=== PATIENT | female | born 1980 | race Caucasian/White ===

== ENCOUNTER 2022-11-12 08:27 | Outpatient (AMB) | payer OTHER, SELFPAY ==
--- NOTE | 2022-11-12 08:35 | AM.OFFWIN_ITS ---
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 no blurred vision unless the eye is tearing. Patient Tobacco Use Status: Never used Tobacco Allergies No Known Allergies Allergy (Verified 11/12/22 08:37) Do you need a note to return to daycare/school/sports/work: No HPI HPI Comments History of Present Illness Details The patient presents to urgent care of right eye pain and tearing. She states that it has been red swelling and tearing for the past 2 days. There is some redness to the as well. She is a contact lens wearer but stopped wearing contacts yesterday. No visual changes. The eye was not crusted shut this morning. [facility] Social History Patient Tobacco Use Status: Never used Tobacco Review of Systems Const Denies headache(s) Eyes Denies change in vision, Denies dry eyes, Denies floaters, Denies irritation, Reports itchy eyes and Denies eye pain ENT Reports no additional complaints and Denies headache(s) Card Reports no additional complaints Musc Denies numbness Skin/Breast Denies skin pain, Denies skin swelling and Denies unusual bruising Neuro Denies headache(s), Denies focal weakness and Denies numbness Aller/Immun Reports itchy eyes Physical Exam Vital Signs: Last Vital Signs Pulse 86 11/12/22 08:36 BP 110/74 11/12/22 08:36 Pulse Ox 97 11/12/22 08:36 Oxygen Delivery Method Room Air 11/12/22 08:36 BMI result Body Mass Index 39.6 Const General: healthy appearing and no acute distress Orientation/consciousness: patient oriented x3 Eyes Other: Right eye: Mild upper and lower eyelid edema, conjunctiva injected, eye tearing. No purulence noted . No foreign body visualized eyelids attempt to be everted but it is too edematous Eyelids: Yes eyelids normal Conjunctivae: conjunctival abnormal bilateral conjunctival injection EOM: EOMs intact bilaterally Neuro General: patient oriented x3 Assessment & Plan Assessment & Plan (1) Conjunctivitis: Code(s): H10.9 - Unspecified conjunctivitis Plan Assessment: Conjunctivitis Patient's symptoms are consistent with conjunctivitis. We will treat with ophthalmic antibiotics. Patient will be given written and verbal instructions. Patient instructed to discontinue contact lens wearing for 2 weeks. Follow-up with ophthalmology return here for any reason Medications: New gentamicin 0.3% 2 drps ophthalmic-Right Q4H 7 days 5 mL 0RF Coding Level of Care Code Est Pt Level 3 (48167) Diagnoses Conjunctivitis H10.9
[2022-11-12 08:36] VITALS: BP 110/74; PULSE 86; O2SAT 97; BMI 39.6
== END 2022-11-12 09:04 | disposition home or self-care (01) ==
PROVIDERS: Visit Provider Emergency Medicine
DX: H10.9 Unspecified conjunctivitis (principal)
CPT/HCPCS: 99213